=== PATIENT | male | born 1950 | race Hispanic/Latino ===

== ENCOUNTER 2020-08-14 06:02 | Observation (INO) | payer OTHER ==
[~2020-08-14] VITALS: Ht 175.3 cm; Wt 86.8 kg
[~2020-08-14 06:02] MED LIST: ATORVASTATIN CA10 MG PO; GLIPIZIDE5 MG PO; HYDROCHLOROTHIA25 MG PO; JANUMET 50-1,01 EACH PO; LOSARTAN POTAS100 MG PO; NOVOLIN N100 UNIT/1 SC; NOVOLIN N100 UNIT/1 SQ
[2020-08-14] MEDS ORDERED: ROPIVACAINE 246.25 MG, EPINEPHRINE HCL 1:1000 1ML 0.5 MG, CLONIDINE HCL 0.08 MG, KETORO... INJ ONE ×5 (06:30)
[2020-08-14] MEDS ORDERED: VANCOMYCIN HCL 1,000 MG ONE (06:36)
[2020-08-14] MEDS ORDERED: TRANEXAMIC ACID 1,000 MG/10 ML ML ONE (06:37)
[2020-08-14] MEDS ORDERED: SODIUM CHLORIDE 0.9% 500ML 500 ML ONE (06:37)
[2020-08-14] MEDS ORDERED: GABAPENTIN 300 MG CAP ONE (07:52)
[2020-08-14] MEDS ORDERED: DEXAMETHASONE SOD PHOS 10 MG/1 ML VIAL ONE (07:52)
[2020-08-14] MEDS ORDERED: CELECOXIB 200 MG CAP ONE (07:52)
[2020-08-14] MEDS ORDERED: CEFAZOLIN SOD 1 GM/NS 50ML 100 ML IV ONE (07:52)
[2020-08-14] MEDS ORDERED: DIPHENHYDRAMINE HCL INJ 50 MG/ML VIAL IV PRN (10:15)
[2020-08-14] MEDS ORDERED: HYDROCODONE/APAP 5MG-325MG TAB PO PRN (10:15)
[2020-08-14] MEDS: SODIUM CHLORIDE 0.9% 1000ML 1,000 ML IV SCH ×2 (10:15→22:33)
[2020-08-14] MEDS ORDERED: DOCUSATE SODIUM 100 MG CAP PO PRN (10:15)
[2020-08-14] MEDS ORDERED: ACETAMINOPHEN 650 MG SUPP PR PRN (10:15)
[2020-08-14] MEDS ORDERED: KETOROLAC TROMETHAMINE 30 MG/ML VIAL IV PRN ×2 (10:15→17:15)
[2020-08-14] MEDS ORDERED: ONDANSETRON HCL INJ 2MG/ML 2ML 2 MG/ML VIAL IV PRN (10:15)
[2020-08-14] MEDS ORDERED: HYDROCODONE/APAP 7.5MG-325MG 1 EA TAB PO PRN (10:15)
[2020-08-14] MEDS ORDERED: ZOLPIDEM TARTRATE 5 MG TAB PO PRN (10:15)
[2020-08-14 12:00] VITALS: BP 144/68
[2020-08-14] MEDS ORDERED: DEXAMETHASONE SOD PHOS INJ 4 MG/ML VIAL ONE (12:17)
[2020-08-14] MEDS ORDERED: LIDOCAINE HCL 2% LOCAL INJ 5 ML SDV VIAL INJ ONE (12:17)
[2020-08-14] MEDS ORDERED: SEVOFLURANE INHAL SOLN 250 ML PEN BTL ONE (12:17)
[2020-08-14] MEDS ORDERED: ONDANSETRON HCL INJ 2MG/ML 2ML 2 MG/ML VIAL ONE (12:17)
[2020-08-14] MEDS ORDERED: PROPOFOL IV EMULSION 10 MG/ML 20 ML VIAL ONE (12:17)
[2020-08-14] MEDS ORDERED: ROPIVACAINE 0.5% 5 MG/ML 30 ML SDV ONE (12:33)
[2020-08-14] MEDS ORDERED: MIDAZOLAM HCL 2 MG/2 ML VIAL ONE (12:42)
[2020-08-14] MEDS ORDERED: FENTANYL CITRATE/PF 100MCG/2 ML INJ ONE (12:42)
[2020-08-14 13:36] LABS: BASOPHILS % 0.2 % (0.0-1.0); EOSINOPHILS % 0.1 % (0.0-6.0); HEMATOCRIT 36.4 % (38.2-49.6); HEMOGLOBIN 11.5 g/dL (14.0-18.0); LYMPHOCYTES # (AUTO) 0.6 (1.0-3.2); LYMPHOCYTES % 6.1 % (18.0-39.1); MEAN CORPUSCULAR HEMOGLOBIN 27.8 pg (28-32); MEAN CORPUSCULAR HGB CONC 31.6 g/dL (31-35); MEAN CORPUSCULAR VOLUME 87.9 fL (81-99); MONOCYTES # (AUTO) 0.1 (0.2-0.8); MONOCYTES % 0.9 % (4.4-11.3); NEUTROPHILS # (AUTO) 8.4 (2.1-6.9); NEUTROPHILS % 91.7 % (38.7-80.0); PLATELET COUNT 190 x10e3/uL (140-360); RED BLOOD COUNT 4.14 x10e6/uL (4.3-5.7); RED CELL DISTRIBUTION WIDTH 14.5 % (11.7-14.4)
[2020-08-14 14:52] LABS: BAND NEUTROPHILS % (MANUAL) 1 %; LYMPHOCYTES % (MANUAL) 1 % (19-48); METAMYELOCYTES % (MANUAL) 1 % (0-0); NEUTROPHILS % (MANUAL) 97 % (40-74)
[2020-08-14 14:53] LABS: RBC MORPHOLOGY COMMENT NORMAL
[2020-08-14 14:54] LABS: PLATELET ESTIMATE ADEQUATE; PLATELET MORPHOLOGY COMMENT NORMAL
[2020-08-14] MEDS: CEFAZOLIN SOD 1 GM/NS 50ML 50 ML IV SCH ×2 (15:16→21:20)
[2020-08-14 15:42] VITALS: BP 160/79
[2020-08-14] MEDS: CELECOXIB 200 MG CAP PO SCH (16:58)
[2020-08-14] MEDS: ASPIRIN 325 MG TAB PO SCH (16:58)
[2020-08-14] MEDS ORDERED: CELECOXIB 100 MG CAP PO SCH (17:00)
[2020-08-14] MEDS ORDERED: HYDRALAZINE HCL 25 MG TAB PO PRN (17:15)
[2020-08-14] MEDS ORDERED: DEXTROSE 50% SYRINGE 50 ML IV PRN (17:15)
[2020-08-14 20:00] VITALS: BP 141/72
[2020-08-14 21:00] VITALS: BP 141/72
[2020-08-14] MEDS ORDERED: NPH, HUMAN INSULIN ISOPHANE 100 UNIT/1 ML 3ML VIAL SQ SCH (21:00)
[2020-08-14] MEDS ORDERED: ATORVASTATIN 10 MG TAB PO SCH (21:00)
[2020-08-14] MEDS: INSULIN LISPRO 100 UNIT/1 ML 3ML VIAL SQ SCH (21:00)
[2020-08-15 00:25] VITALS: BP 130/69
[2020-08-15 04:38] VITALS: BP 132/66
[2020-08-15] MEDS: CEFAZOLIN SOD 1 GM/NS 50ML 50 ML IV SCH (05:10)
[2020-08-15 06:02] LABS: HEMATOCRIT 33.4 % (38.2-49.6); HEMOGLOBIN 10.8 g/dL (14.0-18.0)
[2020-08-15 07:27] VITALS: BP 136/76
[2020-08-15] MEDS: INSULIN LISPRO 100 UNIT/1 ML 3ML VIAL SQ SCH (07:28)
[2020-08-15] MEDS ORDERED: GLIPIZIDE 5 MG TAB PO SCH (07:30)
[2020-08-15] MEDS ORDERED: NPH, HUMAN INSULIN ISOPHANE 100 UNIT/1 ML 3ML VIAL SQ SCH (07:30)
[2020-08-15 07:32] VITALS: BP 136/76
[2020-08-15] MEDS: CELECOXIB 200 MG CAP PO SCH (08:43)
[2020-08-15] MEDS: ASPIRIN 325 MG TAB PO SCH (08:43)
[2020-08-15] MEDS ORDERED: LOSARTAN POTASSIUM 100 MG TAB PO SCH (09:00)
[2020-08-15] MEDS ORDERED: ACETAMINOPHEN 1000 MG/100 ML IV PRN (10:15)
[2020-08-15 11:29] VITALS: BP 146/84
[2020-08-15] MEDS ORDERED: ONDANSETRON HCL 4 MG ORAL DISINTEGRATING TAB PO PRN (12:45)
== END 2020-08-15 12:35 | disposition home or self-care (01) ==
LOC: OR 06:02 → PACU V 10:01 → MED/SURG 12:03
PROVIDERS: ADMIT Specialist; ATTEND Specialist
DX: M17.12 Unilateral primary osteoarthritis, left knee (principal); E11.9 Type 2 diabetes mellitus without complications; I10 Essential (primary) hypertension; E78.5 Hyperlipidemia, unspecified; Z79.4 Long term (current) use of insulin; Z20.828 Contact with and (suspected) exposure to other viral communicable diseases; Z01.818 Encounter for other preprocedural examination
CPT/HCPCS: 27447; 36415 ×2; 64450; 73560; 82948; 85014; 85018; 85025; 86850; 86900; 86920; 93005; 97116 ×2; 97139; 97161; 97530; C1713; G0378 ×2; J0171; J0690 ×2; J1100 ×2; J1885; J2001; J2250; J2405; J2704; J2795; J3010; J3370; J7040; U0002